=== PATIENT | male | born 1990 | race Two or more races ===

== ENCOUNTER 2016-09-21 19:33 | Emergency (ER) | payer OTHER ==
[~2016-09-21] VITALS: Ht 182.9 cm; Wt 104.3 kg
[2016-09-21 19:37] VITALS: BP 149/83
--- NOTE | 2016-09-21 19:47 | NUR ---
[facility] AT BEDSIDE FOR EVAL.
[2016-09-21] MEDS ORDERED: TDAP [DIPH/PERTUSSIS/TET] 0.5 ML VIAL IM ONE ×2 (19:49→20:00)
[2016-09-21] MEDS ORDERED: LIDOCAINE HCL/PF 1% 30 ML SDV ONE (19:53)
[2016-09-21] MEDS ORDERED: LIDOCAINE 1% INJ 50 ML MDV IJ ONE (20:00)
--- NOTE | 2016-09-21 20:41 | NUR ---
LAC REPAIR DONE. 5 SUTURES NOTED. PT D/C HOME STAZBLE CONDITION.
== END 2016-09-21 20:44 | disposition home or self-care (01) ==
LOC: ER 19:37
DX: S61.211A Laceration without foreign body of left index finger without damage to nail, initial encounter (principal); W26.0XXA Contact with knife, initial encounter; Y93.89 Activity, other specified; Y92.000 Kitchen of unspecified non-institutional (private) residence as the place of occurrence of the external cause; Y99.9 Unspecified external cause status
CPT/HCPCS: 12001; 90471; 90715; 99283; A4606; A6402; A6403; J3490 ×2; Z7610